=== PATIENT | male | born 1980 | race African-American/Black ===

== ENCOUNTER 2025-05-12 11:03 | Emergency (ER) | payer SELFPAY ==
[~2025-05-12] VITALS: Ht 170.2 cm; Wt 96.0 kg
[2025-05-12 12:00] VITALS: O2SAT 99
[2025-05-12] MEDS ORDERED: CLOT21CR TOP (12:26)
[2025-05-12 12:45] VITALS: BP 145/105; PULSE 98; RESP 17; TEMP 36.4; O2SAT 98
== END 2025-05-12 12:45 | disposition home or self-care (01) ==
LOC: ER 11:03
DX: R21 Rash and other nonspecific skin eruption (principal); Z88.0 Allergy status to penicillin
CPT/HCPCS: 99282